=== PATIENT | male | born 2000 | race Caucasian/White ===

== ENCOUNTER 2022-09-07 15:21 | Emergency (ER) | payer SELFPAY ==
[~2022-09-07] VITALS: Ht 175.3 cm; Wt 75.0 kg
[2022-09-07 15:22] VITALS: BP 150/89
== END 2022-09-07 20:37 | disposition left against medical advice (07) ==
LOC: M ED 15:21
DX: Z53.21 Procedure and treatment not carried out due to patient leaving prior to being seen by health care provider (principal)

== ENCOUNTER 2024-03-22 08:45 | Day surgery (SDC) | payer OTHER ==
[~2024-03-22] VITALS: Ht 175.3 cm; Wt 94.9 kg
[2024-03-22] MEDS ORDERED: LR 1,000 ML IV SCH ×2 (09:15→12:10)
[2024-03-22] MEDS ORDERED: PRED10TA2 PO (09:44)
[2024-03-22] MEDS ORDERED: MIDAZOLAM INJ 2MG/2ML VIAL As Ordered ONE (10:35)
[2024-03-22] MEDS ORDERED: fentaNYL 100 MCG/2 ML INJECTION As Ordered ONE (10:36)
[2024-03-22] MEDS ORDERED: ROCURONIUM BROMIDE 50MG/5ML VIAL As Ordered ONE (10:41)
[2024-03-22] MEDS ORDERED: LIDOCAINE 2% 100MG/5ML SDV (FOR ANES.) As Ordered ONE (10:42)
[2024-03-22] MEDS ORDERED: ACETAMINOPHEN 1000MG 100ML IV BAG As Ordered ONE (10:43)
[2024-03-22] MEDS ORDERED: ONDANSETRON 4MG 2ML VIAL As Ordered ONE (11:16)
[2024-03-22] MEDS ORDERED: SUGAMMADEX SODIUM 500 MG/5 ML VIAL (BRIDION) As Ordered ONE (11:59)
[2024-03-22] MEDS ORDERED: ONDANSETRON 4MG 2ML VIAL IV PRN (12:10)
[2024-03-22] MEDS ORDERED: oxyCODONE 5MG TAB PO PRN (12:10)
[2024-03-22] MEDS ORDERED: fentaNYL 100 MCG/2 ML INJECTION IV PRN (12:10)
[2024-03-22] MEDS ORDERED: HYDROMORPHONE HCL 0.5 MG/ 0.5 ML SYRINGE IV PRN (12:10)
[2024-03-22 13:09] VITALS: BP 130/77; TEMP 96.9; O2SAT 98
== END 2024-03-22 13:30 | disposition home or self-care (01) ==
LOC: M SDC 08:45
PROVIDERS: ATTEND Otolaryngology
DX: J35.01 Chronic tonsillitis (principal); J35.8 Other chronic diseases of tonsils and adenoids; K21.9 Gastro-esophageal reflux disease without esophagitis; Z72.0 Tobacco use
CPT/HCPCS: 42826; 88302; J0131; J0665; J1100; J2250; J2405; J3010

== ENCOUNTER 2024-05-10 09:42 | Emergency (ER) | payer OTHER ==
[~2024-05-10] VITALS: Ht 175.3 cm; Wt 95.5 kg
[~2024-05-10 09:42] MED LIST: PRED10TA2 PO
[2024-05-10] MEDS ORDERED: IBUP-1022 PO (12:39)
[2024-05-10 12:47] VITALS: BP 121/78; TEMP 97.2; O2SAT 99
== END 2024-05-10 12:51 | disposition home or self-care (01) ==
LOC: M ED 09:42
DX: M72.2 Plantar fascial fibromatosis (principal)